=== PATIENT | male | born 1990 | race Caucasian/White ===

== ENCOUNTER 2017-06-21 08:04 | Emergency (ER) | payer SELFPAY ==
[~2017-06-21] VITALS: Ht 188 cm; Wt 100.0 kg
[~2017-06-21 08:04] MED LIST: BACT800T5 PO; IBUP800T23 PO
[2017-06-21] MEDS ORDERED: IBUPROFEN 800 MG TAB PO ONE (08:15)
[2017-06-21 08:19] VITALS: BP 131/78; PULSE 72; RESP 16; TEMP 98.2; O2SAT 99
[2017-06-21] MEDS ORDERED: IBUP800T23 PO (08:32)
--- NOTE | 2017-06-21 08:32 | PD ---
HPI Chief Complaint: Injury Time Seen by Provider: 08:16 Travel History International Travel<30 days: No Contact w/Intl Traveler<30days: No Traveled to known affect area: No History of Present Illness HPI He 6-year-old male presents to the emergency department complaining of right knee pain 1 week after falling on an injuring it while playing football. Denies paresthesias, loss of sensation, decreased range of motion, decreased strength to the affected extremity. Reports swelling to the knee that has decreased. Has taken Aleve for symptom management. Denies fever, vomiting. No known allergies. Has no medical complaints. No other modifying factors or associated signs and symptoms. PFSH Past Medical History ADHD: Yes Cancer: No Diminished Hearing: No Psychiatric: No Immunizations Current: Yes Seizures: No Thyroid Disease: No Ulcer: No Past Surgical History Appendectomy: Yes Other Surgery: Yes (APPENDECTOMY 5 YEARS AGO) Social History Alcohol Use: Yes (2 BEERS, COUPLE TIMES WEEKLY) Tobacco Use: Yes (1.5 PPD) Substance Use: Yes (MARIJUANA OCCASIONALLY, HX IV DRUG ABUSE) Allergies-Medications (Allergen,Severity, Reaction): Coded Allergies: No Known Allergies (Verified , 06/21/17) Reported Meds & Prescriptions Reported Meds & Active Scripts Active Ibuprofen 800 Mg Tab 800 Mg PO Q6HR PRN Review of Systems Except as stated in HPI: all other systems reviewed are Neg Physical Exam Narrative GENERAL: Well-nourished, well-developed male patient, in no acute distress; afebrile, nontoxic-appearing SKIN: Warm and dry. Scabbed abrasion noted to the right knee; without erythema , edema, drainage. HEAD: Atraumatic. Normocephalic. EYES: Pupils equal and round. No scleral icterus. No injection or drainage. ENT: Mucosa pink and moist. Airway patent. NECK: Trachea midline. CARDIOVASCULAR: Regular rate. RESPIRATORY: No accessory muscle use. MUSCULOSKELETAL: Right mildly edematous, nonerythematous, and without ecchymosis ; full range of motion and flexion to 90; point tenderness to the patellar aspect; joint stable with negative drawer test; no obvious deformity. Right Lower extremity is supple and non-tense with 2+ pedal pulse and sensory intact and without erythema or edema. Ambulatory in the room with normal gait. No obvious deformities. No clubbing. No cyanosis. NEUROLOGICAL: Awake and alert. Oriented 3. No obvious cranial nerve deficits. Motor grossly within normal limits. Normal speech. PSYCHIATRIC: Appropriate mood and affect; insight and judgment normal. Data Data Last Documented VS Vital Signs Date Time Temp Pulse Resp B/P (MAP) Pulse Ox O2 Delivery O2 Flow Rate FiO2 06/21/17 08:19 98.2 72 16 131/78 (95) 99 Orders Orders Knee, Complete (4vws) (06/21/17 08:15) Ibuprofen (Motrin) (06/21/17 08:15) Splint Or Brace Apply/Monitor (06/21/17 09:16) Crutches (06/21/17 09:16) MDM Medical Decision Making Medical Screen Exam Complete: Yes Emergency Medical Condition: Yes Medical Record Reviewed: Yes Differential Diagnosis Knee sprain, knee contusion, patellar fracture Narrative Course 26-year-old male with right knee injury. Ibuprofen administered in the ER. Right x-ray ordered. 908: Right knee x-rays no acute findings. I noticed the lateral aspect of the patient's right ankle is edematous and ecchymotic. I asked him about injuring his ankle and ankle pain and he denies both. I offered to do an x-ray to rule out he declined. He states that he will return if symptoms continue and he is concerned. Murali bandage to knee and crutches provided for support. Ibuprofen prescribed for home. Instructed patient to follow up with primary care provider. Patient verbalizes understanding and agreement with treatment plan. Patient is medically cleared and stable for discharge. Discussed reasons to return to the emergency department. Patient agrees with treatment plan. The patients vital signs are stable and the patient is stable for outpatient follow-up and treatment. Patient discharged home, stable and in no acute distress. Diagnosis Primary Impression: Right knee injury Qualified Codes: S89.91XA - Unspecified injury of right lower leg, initial encounter Referrals: Primary Care Physician Patient Instructions: Crutch Instructions (ED), General Instructions, Knee Sprain (ED) Departure Forms: Tests/Procedures, Work Release Enter return to work date: Jun 23, 2017 Additional Instructions: Tylenol or ibuprofen as needed and as directed to reduce pain and inflammation Rest, ice, compress, and elevate extremity to decrease pain and inflammation Knee brace for support Crutches for support Avoid aggravating activity; increase activity as tolerated Follow-up with primary care provider Follow-up with orthopedics Return to the emergency department immediately with worsening symptoms Med/Other Pt SpecificInfo: Prescription(s) given Scripts Ibuprofen (Ibuprofen) 800 Mg Tab 800 MG PO Q6HR Y for PAIN, #30 TAB 0 Refills Prov: Sandee Daniel 06/21/17 Disposition: 01 DISCHARGE HOME Condition: Stable Sandee Daniel Jun 21, 2017 08:32
--- NOTE | 2017-06-21 08:55 | RADRPT ---
EXAM DATE/TIME: 06/21/2017 08:31 [facility] COMPARISON: No previous studies available for comparison. INDICATIONS : Right knee pain, after football injury 1 week ago. MEDICAL HISTORY : None. SURGICAL HISTORY : None. ENCOUNTER: Initial ACUITY: 1 week PAIN SCORE: 8/10 LOCATION: Right knee FINDINGS: Four view examination of the right knee demonstrates no evidence of fracture or dislocation. Bony mi neralization is normal. The articular surfaces are intact. The suprapatellar soft tissues have a no rmal configuration. CONCLUSION: No acute disease. Justino Bell MD on June 21, 2017 at 8:53 Board Certified Radiologist. This report was verified electronically.
== END 2017-06-21 09:28 | disposition home or self-care (01) ==
LOC: NEPK 08:04
DX: S89.91XA Unspecified injury of right lower leg, initial encounter (principal); S80.211A Abrasion, right knee, initial encounter; F90.9 Attention-deficit hyperactivity disorder, unspecified type; F17.200 Nicotine dependence, unspecified, uncomplicated; W18.30XA Fall on same level, unspecified, initial encounter; Y93.62 Activity, american flag or touch football
CPT/HCPCS: 73564; 99283; E0113

== ENCOUNTER 2017-08-13 00:38 | Emergency (ER) | payer SELFPAY ==
[~2017-08-13] VITALS: Ht 188 cm; Wt 100.0 kg
[~2017-08-13 00:38] MED LIST changes: -BACT800T5 PO; +IBUP1TAB7 PO; -IBUP800T23 PO
[2017-08-13 00:40] VITALS: BP 133/76; PULSE 82; RESP 16; TEMP 97.9; O2SAT 96
[2017-08-13] MEDS ORDERED: SODIUM CHLOR 0.9% 1000 ML INJ 1,000 ML IV SCH (01:20)
[2017-08-13] MEDS ORDERED: PANTOPRAZOLE SODIUM 40 MG VIAL IVP ONE (01:30)
[2017-08-13] MEDS ORDERED: ONDANSETRON HCL 4 MG/2 ML VIAL IVP ONE (01:30)
[2017-08-13 01:51] LABS: BASOPHIL % 0.4 % (0.0-2.0); EOSINOPHIL % 0.2 % (0.0-4.0); HEMATOCRIT 49.2 % (39.0-51.0); HEMO FLAGS DIFF FINAL; LYMPHOCYTE # 1.5 TH/MM3 (1.0-4.8); MEAN CELL VOLUME 86.7 FL (80.0-100.0); MEAN CORPUSCULAR HEMOGLOBIN 30.7 PG (27.0-34.0); MEAN CORPUSCULAR HGB CONC 35.4 % (32.0-36.0); MONO % 8.1 % (0.0-8.0); NEUT % 77.3 % (16.0-70.0); PLATELET COUNT 202 TH/MM3 (150-450); RED BLOOD COUNT 5.68 MIL/MM3 (4.50-5.90); RED CELL DISTRIBUTION WIDTH 13.3 % (11.6-17.2); WHITE BLOOD COUNT 10.4 TH/MM3 (4.0-11.0)
[2017-08-13 02:00] LABS: ALT (GPT) 99 U/L (12-78); ANION GAP 10 MEQ/L (5-15); AST (GOT) 45 U/L (15-37); BICARBONATE 29.3 MEQ/L (21.0-32.0); BLOOD UREA NITROGEN 16 MG/DL (7-18); CHLORIDE 100 MEQ/L (98-107); GLOMERULAR FILTRATION RATE 56 ML/MIN (>89); POTASSIUM 3.8 MEQ/L (3.5-5.1); SODIUM (NA) 139 MEQ/L (136-145)
[2017-08-13 02:02] LABS: ALKALINE PHOSPHATASE 90 U/L (45-117)
--- NOTE | 2017-08-13 02:06 | PD ---
HPI Chief Complaint: GI Complaint Time Seen by Provider: 01:16 Travel History International Travel<30 days: No Contact w/Intl Traveler<30days: No Traveled to known affect area: No History of Present Illness HPI 26yo M with no significant PMH presents to the ED with c/o intermittent nausea and vomiting for weeks. Said today there was a small amount of pinkish blood in the vomit so he became worried. Feels like his abdomen is spinning when he vomits. Sometimes with pain. Denies any fever, chest pain, sob, dysuria, hematuria, testicular pain, penile discharge. PFSH Past Medical History ADHD: Yes Cancer: No Diminished Hearing: No Psychiatric: No Immunizations Current: Yes Seizures: No Thyroid Disease: No Ulcer: No Past Surgical History Appendectomy: Yes Other Surgery: Yes (APPENDECTOMY 5 YEARS AGO) Social History Alcohol Use: No (QUIT) Tobacco Use: Yes (1 PPD) Substance Use: Yes (MARIJUANA DAILY, HX IV DRUG ABUSE) Allergies-Medications (Allergen,Severity, Reaction): Coded Allergies: No Known Allergies (Verified Adverse Reaction, Unknown, 08/13/17) Reported Meds & Prescriptions Reported Meds & Active Scripts Active Review of Systems Except as stated in HPI: all other systems reviewed are Neg Physical Exam Narrative GENERAL: 26yo M not in distress. SKIN: Focused skin assessment warm/dry. HEAD: Atraumatic. Normocephalic. EYES: Pupils equal and round. No scleral icterus. No injection or drainage. ENT: No nasal bleeding or discharge. Mucous membranes pink and moist. NECK: Trachea midline. No JVD. CARDIOVASCULAR: Regular rate and rhythm. No murmur appreciated. RESPIRATORY: No accessory muscle use. Clear to auscultation. Breath sounds equal bilaterally. GASTROINTESTINAL: Abdomen soft, mild LUQ ttp. No rebound tenderness or guarding. MUSCULOSKELETAL: No obvious deformities. No clubbing. No cyanosis. No edema. NEUROLOGICAL: Awake and alert. No obvious cranial nerve deficits. Motor grossly within normal limits. Normal speech. PSYCHIATRIC: Appropriate mood and affect; insight and judgment normal. Data Data Last Documented VS Vital Signs Date Time Temp Pulse Resp B/P (MAP) Pulse Ox O2 Delivery O2 Flow Rate FiO2 08/13/17 00:40 97.9 82 16 133/76 (95) 96 Room Air Orders Orders Complete Blood Count With Diff (08/13/17 01:20) Comprehensive Metabolic Panel (08/13/17 01:20) Lipase (08/13/17 01:20) Urinalysis - C+S If Indicated (08/13/17 01:20) Ondansetron Inj (Zofran Inj) (08/13/17 01:30) Pantoprazole Inj (Protonix Inj) (08/13/17 01:30) Sodium Chlor 0.9% 1000 Ml Inj (Ns 1000 M (08/13/17 01:20) Labs Laboratory Tests Test 08/13/17 01:40 White Blood Count 10.4 TH/MM3 Red Blood Count 5.68 MIL/MM3 Hemoglobin 17.4 GM/DL Hematocrit 49.2 % Mean Corpuscular Volume 86.7 FL Mean Corpuscular Hemoglobin 30.7 PG Mean Corpuscular Hemoglobin Concent 35.4 % Red Cell Distribution Width 13.3 % Platelet Count 202 TH/MM3 Mean Platelet Volume 8.5 FL Neutrophils (%) (Auto) 77.3 % Lymphocytes (%) (Auto) 14.0 % Monocytes (%) (Auto) 8.1 % Eosinophils (%) (Auto) 0.2 % Basophils (%) (Auto) 0.4 % Neutrophils # (Auto) 8.0 TH/MM3 Lymphocytes # (Auto) 1.5 TH/MM3 Monocytes # (Auto) 0.8 TH/MM3 Eosinophils # (Auto) 0.0 TH/MM3 Basophils # (Auto) 0.0 TH/MM3 CBC Comment DIFF FINAL Differential Comment Blood Urea Nitrogen 16 MG/DL Creatinine 1.53 MG/DL Random Glucose 117 MG/DL Total Protein 9.0 GM/DL Albumin 4.9 GM/DL Calcium Level 10.1 MG/DL Alkaline Phosphatase 90 U/L Aspartate Amino Transf (AST/SGOT) 45 U/L Alanine Aminotransferase (ALT/SGPT) 99 U/L Total Bilirubin 1.0 MG/DL Sodium Level 139 MEQ/L Potassium Level 3.8 MEQ/L Chloride Level 100 MEQ/L Carbon Dioxide Level 29.3 MEQ/L Anion Gap 10 MEQ/L Estimat Glomerular Filtration Rate 56 ML/MIN Lipase 55 U/L [facility] Medical Decision Making Medical Screen Exam Complete: Yes Emergency Medical Condition: Yes Differential Diagnosis Gastritis vs. pancreatitis vs. cyclic vomiting syndrome vs. dehydration vs. electrolyte abnormality Narrative Course 26yo M with intermittent vomiting for weeks. Pt is very well appearing. Vital signs normal. Labs reviewed, no leukocytosis. H/H 17.4/49.2. Creatinine mildly elevated at 1.53. AST/ALT elevated at 45/99. Normal bilirubin. Lipase low. Pt has no RUQ pain. Pt given zofran, NS IVF, and pantoprazole. Pt feels better and no longer nauseous and has no abdominal pain. Pt admits to smoking marajuana daily. I informed him of the elevated liver enzymes and for him to follow up with primary care physician. Return precautions given. Diagnosis Primary Impression: Vomiting Qualified Codes: G43.A0 - Cyclical vomiting, not intractable Patient Instructions: General Instructions Departure Forms: Tests/Procedures Additional Instructions: Please follow up with your primary care physician regarding elevated liver enzymes. Return to the ED if symptoms worsen. Med/Other Pt SpecificInfo: No Change to Meds Disposition: 01 DISCHARGE HOME Condition: Stable Jessie Madrid Aug 13, 2017 02:06
== END 2017-08-13 02:48 | disposition home or self-care (01) ==
LOC: NEPE 00:38
DX: R11.10 Vomiting, unspecified (principal); F17.200 Nicotine dependence, unspecified, uncomplicated; F90.9 Attention-deficit hyperactivity disorder, unspecified type
CPT/HCPCS: 80053; 83690; 85025; 96361; 96374; 96375; 99284; C9113; J2405; J7030